=== PATIENT | male | born 1965 | race Caucasian/White ===

== ENCOUNTER 2017-11-29 15:24 | Emergency (ER) | payer BC, OTHER ==
[2017-11-29 15:41] VITALS: BP 137/84
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
--- NOTE | 2017-11-29 16:24 | RAD ---
Indication: Jaw pain. Single view of the mandible as well as of the temporomandibular joints in the open and closed position demonstrates no definite fracture. The study is limited due to overlying structures. IMPRESSION: No fracture of the mandible is noted.
== END 2017-11-29 16:30 | disposition home or self-care (01) ==
LOC: UCEAST 15:24
DX: S09.93XA Unspecified injury of face, initial encounter (principal); Y04.2XXA Assault by strike against or bumped into by another person, initial encounter; Y93.89 Activity, other specified; Y92.9 Unspecified place or not applicable
CPT/HCPCS: 70330; 99211; G0463

== ENCOUNTER 2022-02-16 07:30 | Observation (INO) ==
[~2022-02-16 07:30] MED LIST: Buffered Lidocaine 1% SYRIN 1 ml INTRADERM ONE; HYDROmorphone 1 MG/1 ML SYRINGE IV PRN; Lactated Ringers 1000 ml BAG 1,000 ML IV SCH; Naloxone 0.4 mg VIAL 0.4 mg/ml 1 ml VIAL IV PRN; Prochlorperazine 5 mg/ml 2 ml VIAL (10 mg) IV PRN
[2022-02-16] MEDS ORDERED: ceFAZolin 2 GM in NS PREMIX 2 GM/100 ML BAG IVPB ONE (11:08)
[2022-02-16] MEDS ORDERED: Ropivacaine 5 MG/ML 20 ML VIAL 0.5% (100 MG) ONE ×2 (11:59→12:14)
[2022-02-16] MEDS ORDERED: ROPIVACAINE 5 MG/ML 30 ML BTL (0.5%) ONE (12:00)
[2022-02-16] MEDS ORDERED: fentaNYL 100 mcg/2 ml 50 MCG/ML VIAL ONE ×2 (12:01→12:35)
[2022-02-16] MEDS ORDERED: Midazolam 2 mg/2 ml VIAL 1 mg/ml 2 ml VIAL (2 mg) ONE ×2 (12:01→12:34)
[2022-02-16] MEDS ORDERED: Dexamethasone IV 4 MG/ML VIAL 1 ml VIAL ONE (12:34)
[2022-02-16] MEDS ORDERED: Ondansetron 4 mg VIAL 2 MG/ML 2 ml VIAL ONE (12:34)
[2022-02-16] MEDS ORDERED: Lidocaine 2% PF 5 ML VIAL ONE (12:34)
[2022-02-16] MEDS ORDERED: Morphine 2 MG/ML SYRINGE IV PRN (13:35)
[2022-02-16] MEDS ORDERED: Ondansetron 4 mg VIAL 2 MG/ML 2 ml VIAL IV PRN (13:35)
[2022-02-16] MEDS ORDERED: Ondansetron ODT 4 mg TAB 4 MG TAB PO PRN (13:35)
[2022-02-16] MEDS ORDERED: Lactulose 30 ml UDC PO PRN (13:35)
[2022-02-16] MEDS ORDERED: Magnesium Hydroxide LIQ 30 ML UDC PO PRN (13:35)
[2022-02-16] MEDS ORDERED: Propofol 10 MG/ML 20 ML BTL ONE (15:00)
[2022-02-16] MEDS: Lactated Ringers 1000 ml BAG 1,000 ML IV SCH (18:12)
[2022-02-16] MEDS: Magnesium Hydroxide LIQ 30 ML UDC PO SCH (21:35)
[2022-02-16] MEDS: ceFAZolin 1 GM ADVAN 1 GM in NS 0.9% 50 ML 50 ML IVPB SCH (21:36)
[2022-02-17] MEDS: ceFAZolin 1 GM ADVAN 1 GM in NS 0.9% 50 ML 50 ML IVPB SCH ×2 (04:45→12:02)
[2022-02-17] MEDS: Lactated Ringers 1000 ml BAG 1,000 ML IV SCH (04:46)
[2022-02-17 06:52] LABS: Hematocrit 40 % (42-52); Hemoglobin 13.4 g/dL (14.0-18.0); Mean Platelet Volume 7.9 fL (7.4-10.4); Platelet Count 240 10^3/uL (150-450)
[2022-02-17 07:13] LABS: Calcium 8.7 mg/dL (8.6-10.3); Potassium 4.1 mmol/L (3.5-5.0); eGFR CKD-EPI 102.6 (>60)
[2022-02-17] MEDS ORDERED: Vitamin THERAPEUTIC TAB PO SCH (09:00)
[2022-02-17] MEDS: Magnesium Hydroxide LIQ 30 ML UDC PO SCH (09:15)
[2022-02-17 11:19] VITALS: BP 133/76
[2022-02-18] MEDS ORDERED: Lisinopril/HCTZ 20/25 TAB (NF) PO SCH ×2 (09:00)
== END 2022-02-17 12:45 | disposition home or self-care (01) ==
LOC: AA 10:18 → INTOOBSV 10:18 → SSU 13:35
PROVIDERS: ADMIT Orthopaedic Surgery Adult Reconstructive Orthopaedic Surgery; ATTEND Orthopaedic Surgery Adult Reconstructive Orthopaedic Surgery